=== PATIENT | male | born 2005 | race Caucasian/White ===

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

== ENCOUNTER 2024-05-14 23:18 | Emergency (ER) | payer BC, SELFPAY ==
[2024-05-14 23:19] VITALS: BP 151/85; PULSE 101; RESP 20; TEMP 36.8; O2SAT 99; BMI 23.0
--- NOTE | 2024-05-14 23:23 | HMH.EDGENADL ---
Discharge Plan Disposition Patient Disposition: Home, Self-Care Prescriptions Prescriptions: No Action No Known Home Medications Referrals Follow up/Referrals: Gayle Leo APRN [Primary Care Provider] - See instructions Activity Restrictions/Add. Instructions Additional Instructions/Restrictions: Please follow-up with your primary care provider. Please return to the emergency department if you develop any new or worsening symptoms or become concerned for your health. Please keep wound clean and dry, okay to shower/let soapy water run over. Sutures are absorbable. Please try to keep finger straight is much as possible. Please monitor for signs of infection. Clinical Impressions Clinical Impression: Finger laceration Qualifiers: Encounter type: initial encounter Finger: index finger Damage to nail status: without damage Foreign body presence: without foreign body Laterality: left Qualified Code(s): S61.211A - Laceration without foreign body of left index finger without damage to nail, initial encounter Instructions Patient Instructions: DI for Laceration Repair Discharge ED Provider: Brennon Qiu General Adult HPI General Chief complaint: Wound/Laceration Stated complaint: laceraton L index finger Time Seen by Provider: 05/14/24 23:21 History of Present Illness HPI narrative: 18-year-old male with history of Marfan syndrome presents for a laceration to his left index finger. He reports that he was cutting open some tape when it slipped and he sliced his finger. He reports that he had some bleeding on the scene but is doing better now. Denies any numbness tingling weakness. Denies any other injury. Related Data Home Medications Medication Instructions Recorded Confirmed No Known Home Medications 11/19/19 05/17/20 Allergies Allergy/AdvReac Type Severity Reaction Status Date / Time No Known Allergies Allergy Verified 05/17/20 10:18 [facility] Disclaimer: The information contained in this section may have been updated after the patient was seen, as this information can be updated by other users. Social History Smoking Status: Never smoker alcohol intake: never substance use type: denies use current occupational status: student Travel in the last 8 weeks: None household members: family housing: house ROS Obtained: Yes All systems reviewed & no additional complaints except as documented Physical Exam General General appearance: alert and in no apparent distress Head Head exam: atraumatic and normocephalic Eye Eye exam: Present normal appearance, PERRL and EOMI ENT ENT exam: Present normal oropharynx and normal external ear exam Neck Neck exam: Present normal inspection and full ROM Chest Chest inspection: Present normal inspection and symmetric chest wall rise; Absent tenderness Respiratory Respiratory exam: Present normal lung sounds bilaterally; Absent respiratory distress Cardiovascular Cardiovascular exam: Present regular rate and normal rhythm Abdominal Exam Abdominal exam: Present soft; Absent distention, tenderness or guarding Extremities Exam Extremities exam: Present other (Left hand: 2 to 3 cm laceration over the palmar aspect of the left second middle phalanx. No exposed tendon or bone, normal neurovascular and tendon exam.); Absent edema or joint swelling Back Exam Back exam: Present normal inspection; Absent tenderness Neurological Exam Neurological exam: Present alert and oriented X3; Absent motor sensory deficit Psychiatric Psychiatric exam: Present normal affect and normal mood Skin Skin exam: Present warm, dry and normal color Lymphatic Lymphatic Findings: no adenopathy Medical Decision Making Medical Records Medical records reviewed: Yes I reviewed the patient's medical records. Otis Inquiry Pt receiving controlled substance: No Otis was queried for this patient: No Vital Signs: 05/14/24 23:19 Temperature 98.2 F Temperature Source Oral Pulse Rate [Right] 101 H Respiratory Rate 20 Blood Pressure [Right Arm] 151/85 H Blood Pressure Mean [Right Arm] 107 Blood Pressure Source [Right Arm] Automatic Cuff 02 Sat by Pulse Oximetry 99 Oxygen Delivery Method Room Air Lab Data Lab results reviewed: Yes I reviewed the patient's lab results. Orders (Tests/Meds): ED MEDICATIONS Discontinued Medications Generic Name Dose Route Start Last Admin Trade Name Freq PRN Reason Stop Dose Admin Tetanus/Reduced Diphtheria/Acell Pertussis 0.5 ml 05/15/24 00:38 Tet/Diphth/Pert-Adult 0.5ml Syringe IM 05/15/24 00:39 .ONCE ONE Medical Decision Narrative: 18-year-old male with history of Marfan's presents with laceration to palmar aspect of left index finger.. History was obtained via interactive discussion with patient, family. On arrival, patient is [afebrile, hemodynamically stable, satting appropriately, alert, oriented x4, GCS 15], moving all extremities spontaneously. Full physical exam performed and significant for finger laceration as described above without evidence of deep space injury. Differential includes but is not limited to laceration, open fracture, tendon injury, neurovascular injury. Patient was given Tdap, digital block for symptomatic management and correction of underlying abnormalities. Laceration repaired at bedside by me using absorbable sutures. Patient was discharged in stable condition with a AlumaFoam splint in place. Radiographs were considered but deemed unnecessary given no concern for radiopaque foreign body and no concern for fracture. Procedures Risk/Benefits of Procedure(s) Were Explained: Yes Laceration Laceration 1: Site: finger (Palmar aspect, second digit, left hand,) Side (If applicable): left Size (cm): 2.5 Description: linear Depth: simple, single layer and involves subcutaneous layer Local Anesthetic: lidocaine 1% (Digital block) Amount of anesthesia used (mL): 5 Pre-repair: wound explored, irrigated extensively and deep structures intact Skin layer closed with: other (Fast gut) Size (cm): 5-0 Number of sutures: 6 Technique: simple, interrupted Nerve Block Nerve Block 1: Local Anesthetic: lidocaine 1% Amount of anesthesia used (mL): 5 Side: Left Nerve Blocks: digital (Left second digit) Procedure Successful: Yes Patient Tolerated Procedure: well Complications: none Critical Care Critical Care Time Critical Care Time: No
[2024-05-15 00:38] VITALS: BP 176/101; PULSE 78; RESP 18; TEMP 36.6; O2SAT 98
[2024-05-15] MEDS: TET/DIPHTH/PERT-ADULT 0.5ML SYRINGE 0.5 ML IM (00:47)
== END 2024-05-15 00:54 | disposition home or self-care (01) ==
PROVIDERS: Emergency Provider Emergency Medicine; PCP Nurse Practitioner Family
DX: S61.211A Laceration without foreign body of left index finger without damage to nail, initial encounter (principal); W26.0XXA Contact with knife, initial encounter; Z23 Encounter for immunization
CPT/HCPCS: 12001; 90471; 90715; 99283